=== PATIENT | male | born 1970 | race Caucasian/White ===

== ENCOUNTER 2017-04-25 20:19 | Emergency (ER) | payer OTHER ==
[2017-04-25 20:33] VITALS: BP 141/80
--- NOTE | 2017-04-25 20:55 | ERNOTE ---
ENT HPI Date of Service: 04/25/17 Presenting Symptoms: other - L ear drainage Time Seen by Provider: 04/25/17 20:37 - Immun/Allergies/Home Medications Immunizations: IMMUNIZATION HX Immunizations Up to Date Yes History of Influenza Vaccine No Hx Pneumococcal Vaccination No Allergies/Adverse Reactions: Allergies Allergy/AdvReac Type Severity Reaction Status Date / Time No Known Allergies Allergy Unverified 04/04/15 12:34 Home Medications: HOME MEDICATIONS Ciprofloxacin/Hydrocortisone [Cipro Hc Otic Suspension] 1 drop OT BID #1 bottle 04/25/17 [Last Taken Unknown] - History of Present Illness Narrative: Pt. comes in with c/o clear drainage and popping in his L ear and states that he had tubes placed a month ago. Pt. denies any sinus or chest congestion, fever, SOB, CP, NVD, dizziness or pain. Pt. denies any alleviating factors or aggravating factors, prehospital treatment or swimming or Q tip usage. Review of Systems - Review of Systems Constitutional: Present: no symptoms reported. Absent: recent illness, fever, chills, weakness, fatigue, malaise EYE: Present: no symptoms reported ENT: Present: ear discharge - clear Respiratory: Present: no symptoms reported. Absent: shortness of breath, cough , wheezing Cardiology: Present: no symptoms reported. Absent: chest pain, palpitations, edema Gastrointestinal/Abdominal: Present: no symptoms reported Genitourinary: Present: no symptoms reported Musculoskeletal: Present: no symptoms reported. Absent: back pain, joint pain Skin: Present: no symptoms reported. Absent: rash, change in color Neurological: Present: no symptoms reported Endocrine: Present: no symptoms reported All Other Systems: All systems neg except as marked - Patient's Past Medical History Patient History - Medical: No pertinent hx Patient History - Cardiac/Respiratory: No pertinent hx Patient History - Cancer: Throat Patient History - Surgical Procedures: Ear Tubes, T & A, Hernia Repair, Orthopedic Patient History - Other: None - Social History Living Situations: home Abuse History: No History of abuse Psych History: Hx of Anxiety, Hx of Depression Smoking Status: Never smoker Alcohol Use: none Drug Use: none - Immunizations Immunizations Up to Date: Yes Hx Pneumococcal Vaccination: No History of Influenza Vaccine: No Physical Exam - Physical Exam General Appearance: Present: wd/wn, alert, no apparent distress Head Exam: Present: normal inspection, no evidence of injury Eye Exam: Normal inspection: bilateral, PERRL: bilateral, EOMI: bilateral Ears, Nose, Throat: Present: abnormal TM (R) - TM tubes, abnormal TM (L) - TM tubes, other - eustacian tube with erythema L ear Respiratory: Present: no respiratory distress, normal breath sounds, no accessory muscle use, chest nontender, lungs clear Cardiovascular/Chest: Present: regular rate, rhythm, no murmur, normal peripheral pulses Extremity Exam: Present: normal inspection Neurological Exam: Present: alert, oriented Skin Exam: Present: normal color, warm/dry. Absent: pallor, skin rash ED Progress - Date and Time Seen: Date and Time: 04/25/17 20:48 Am unable to get fluoroquinolone/steroid gtt here tonight so pt. will start tomorrow after he picks up his med. - Vital Signs Patient's Vital Signs:: I have reviewed the patient's vital signs. Vital Signs: Vital Signs 04/25/17 20:28 Temperature 36.2 C L Pulse Rate 85 Respiratory 18 Rate Blood Pressure 141/80 O2 Sat by Pulse 96 Oximetry - Progress/Reassessment Chief Complaint: Earache Departure Clinical Impression: Acute otitis externa of left ear Qualifiers: Otitis externa type: diffuse Qualified Code(s): H60.312 - Diffuse otitis externa, left ear - Departure Disposition: Home self-care Condition: Good Instructions: Otitis Externa, [id number] Additional Instructions: Please follow up with your ENT in 2-3 days. Prescriptions: Ciprofloxacin/Hydrocortisone [Cipro Hc Otic Suspension] 1 drop OT BID #1 bottle
== END 2017-04-25 20:57 | disposition home or self-care (01) ==
LOC: ER 20:19
DX: H60.312 Diffuse otitis externa, left ear (principal); Z96.22 Myringotomy tube(s) status